=== PATIENT | female | born 1980 | race Caucasian/White ===

== ENCOUNTER 2016-08-18 09:52 | Emergency (ER) | payer SELFPAY ==
[~2016-08-18] VITALS: Ht 167.6 cm; Wt 73.9 kg
[2016-08-18 12:44] VITALS: BP 134/78
== END 2016-08-18 12:44 | disposition home or self-care (01) ==
LOC: ED 09:52
DX: L03.012 Cellulitis of left finger (principal)
CPT/HCPCS: J2001

== ENCOUNTER 2016-10-29 13:20 | Emergency (ER) | payer MEDICAID ==
[~2016-10-29] VITALS: Ht 167.6 cm; Wt 76.7 kg
[2016-10-29 13:58] VITALS: BP 131/91
== END 2016-10-29 13:58 | disposition home or self-care (01) ==
LOC: ED 13:20
DX: L02.412 Cutaneous abscess of left axilla (principal); R03.0 Elevated blood-pressure reading, without diagnosis of hypertension; Z88.0 Allergy status to penicillin; Z88.2 Allergy status to sulfonamides

== ENCOUNTER 2017-06-29 17:33 | Emergency (ER) | payer OTHER ==
[~2017-06-29] VITALS: Ht 167.6 cm; Wt 74.8 kg
[2017-06-29 17:44] VITALS: Ht 167.6 cm; Wt 74.8 kg
[2017-06-29 19:34] VITALS: BP 126/74
== END 2017-06-29 19:34 | disposition home or self-care (01) ==
LOC: ED 17:33
DX: S93.602A Unspecified sprain of left foot, initial encounter (principal); Z88.2 Allergy status to sulfonamides; Z88.0 Allergy status to penicillin; W19.XXXA Unspecified fall, initial encounter; Y93.89 Activity, other specified; Y92.89 Other specified places as the place of occurrence of the external cause; Y99.8 Other external cause status

== ENCOUNTER 2018-10-06 09:56 | Emergency (ER) | payer OTHER ==
[~2018-10-06] VITALS: Ht 167.6 cm; Wt 81.6 kg
[2018-10-06 10:07] VITALS: BP 108/74; Ht 167.6 cm; Wt 81.6 kg
== END 2018-10-06 12:42 | disposition home or self-care (01) ==
LOC: ED 09:56
DX: S61.250A Open bite of right index finger without damage to nail, initial encounter (principal); Z88.0 Allergy status to penicillin; Z88.2 Allergy status to sulfonamides; W55.01XA Bitten by cat, initial encounter; Y93.89 Activity, other specified; Y92.89 Other specified places as the place of occurrence of the external cause; Y99.8 Other external cause status
CPT/HCPCS: J1885; J3490; Q0092

== ENCOUNTER 2018-10-09 16:33 | Emergency (ER) | payer OTHER ==
[~2018-10-09] VITALS: Ht 167.6 cm; Wt 81.2 kg
[2018-10-09 16:48] VITALS: BP 114/75; Ht 167.6 cm; Wt 81.2 kg
== END 2018-10-09 19:55 | disposition left against medical advice (07) ==
LOC: ED 16:33
DX: Z53.21 Procedure and treatment not carried out due to patient leaving prior to being seen by health care provider (principal)

== ENCOUNTER 2018-10-10 19:44 | Emergency (ER) | payer OTHER ==
[~2018-10-10] VITALS: Ht 167.6 cm; Wt 81.4 kg
[2018-10-10 19:51] VITALS: Ht 167.6 cm; Wt 81.4 kg
[2018-10-10 20:57] LABS: BASOPHIL % 0.3 % (0-2); RED CELL DISTRIBUTION WIDTH 13.4 % (11.5-14.5)
[2018-10-10 20:58] LABS: PLATELET COUNT 474 x10^3mcL (130-400)
[2018-10-10 21:05] LABS: CALCIUM 9.8 mg/dL (8.5-10.1); CARBON DIOXIDE 27.4 mmol/L (21-32); CHLORIDE SERUM 102 mmol/L (98-107); CREATININE SERUM 0.6 mg/dL (0.6-1.0); GFR1 > 60 mL/min; GLUCOSE SERUM 107 mg/dL (74-106); POTASSIUM SERUM 3.9 mmol/L (3.5-5.1); SODIUM SERUM 140 mmol/L (136-145)
[2018-10-10 21:10] LABS: ALBUMIN 3.6 g/dL (3.4-5.0); ALKALINE PHOSPHATASE 103 U/L (46-116); ALT/SGPT 24 U/L (14-59); AST/SGOT 14 U/L (15-37); BILIRUBIN TOTAL 0.2 mg/dL (0.20-1.00); TOTAL PROTEIN, SERUM 7.9 g/dL (6.4-8.2)
[2018-10-10 22:20] VITALS: BP 125/87
== END 2018-10-10 22:20 | disposition left against medical advice (07) ==
LOC: ED 19:44
PROVIDERS: Emergency Medicine
DX: L03.011 Cellulitis of right finger (principal); S61.254D Open bite of right ring finger without damage to nail, subsequent encounter; Z88.0 Allergy status to penicillin; Z88.2 Allergy status to sulfonamides; W55.01XD Bitten by cat, subsequent encounter
CPT/HCPCS: J3490; J7030; Q0092

== ENCOUNTER 2019-02-03 21:45 | Emergency (ER) | payer OTHER ==
[~2019-02-03] VITALS: Ht 167.6 cm; Wt 78.5 kg
[2019-02-03 21:55] VITALS: Ht 167.6 cm; Wt 78.5 kg
[2019-02-03 22:48] LABS: BASOPHIL % 1.5 % (0-2); PLATELET COUNT 373 x10^3mcL (130-400); RED CELL DISTRIBUTION WIDTH 13.8 % (11.5-14.5)
[2019-02-03 23:19] LABS: CALCIUM 8.4 mg/dL (8.5-10.1); CARBON DIOXIDE 20.4 mmol/L (21-32); CHLORIDE SERUM 106 mmol/L (98-107); CREATININE SERUM 0.7 mg/dL (0.6-1.0); GFR1 > 60 mL/min; GLUCOSE SERUM 108 mg/dL (74-106); POTASSIUM SERUM 3.8 mmol/L (3.5-5.1); SODIUM SERUM 139 mmol/L (136-145)
[2019-02-03 23:26] LABS: ALBUMIN 3.7 g/dL (3.4-5.0); ALKALINE PHOSPHATASE 80 U/L (46-116); ALT/SGPT 18 U/L (14-59); AST/SGOT 16 U/L (15-37); BILIRUBIN TOTAL 0.3 mg/dL (0.20-1.00); LIPASE 72 IU/L (73-393); TOTAL PROTEIN, SERUM 7.5 g/dL (6.4-8.2)
[2019-02-04 03:34] VITALS: BP 98/63
== END 2019-02-04 03:34 | disposition home or self-care (01) ==
LOC: ED 21:45
PROVIDERS: Emergency Medicine
DX: N83.209 Unspecified ovarian cyst, unspecified side (principal); N39.0 Urinary tract infection, site not specified; F17.210 Nicotine dependence, cigarettes, uncomplicated; Z88.0 Allergy status to penicillin; Z88.2 Allergy status to sulfonamides
CPT/HCPCS: J1885; J2270; J2405; J7030; Q0092

== ENCOUNTER 2019-05-14 20:22 | Emergency (ER) | payer OTHER ==
[~2019-05-14] VITALS: Ht 170.2 cm; Wt 80.3 kg
[2019-05-14 20:35] VITALS: Ht 170.2 cm; Wt 80.3 kg
[2019-05-15 00:25] VITALS: BP 110/65
== END 2019-05-15 00:22 | disposition home or self-care (01) ==
LOC: ED 20:22
DX: S52.501A Unspecified fracture of the lower end of right radius, initial encounter for closed fracture (principal); Z88.0 Allergy status to penicillin; Z88.2 Allergy status to sulfonamides; W22.8XXA Striking against or struck by other objects, initial encounter; Y93.89 Activity, other specified; Y92.89 Other specified places as the place of occurrence of the external cause; Y99.8 Other external cause status
CPT/HCPCS: J3010; Q0092

== ENCOUNTER 2020-03-11 02:07 | Emergency (ER) | payer OTHER ==
[~2020-03-11] VITALS: Ht 167.6 cm; Wt 79.4 kg
[2020-03-11 02:11] VITALS: Ht 167.6 cm; Wt 79.4 kg
[2020-03-11 03:00] VITALS: BP 119/75
== END 2020-03-11 03:00 | disposition home or self-care (01) ==
LOC: ED 02:07
DX: S61.512A Laceration without foreign body of left wrist, initial encounter (principal); Z88.0 Allergy status to penicillin; Z88.2 Allergy status to sulfonamides; F17.200 Nicotine dependence, unspecified, uncomplicated; W45.8XXA Other foreign body or object entering through skin, initial encounter; Y93.89 Activity, other specified; Y92.89 Other specified places as the place of occurrence of the external cause; Y99.8 Other external cause status
CPT/HCPCS: 90715; 99406; J2001

== ENCOUNTER 2020-03-15 02:21 | Emergency (ER) | payer OTHER ==
[~2020-03-15] VITALS: Ht 167.6 cm; Wt 80.4 kg
[2020-03-15 02:32] VITALS: Ht 167.6 cm; Wt 80.4 kg
[2020-03-15 04:18] VITALS: BP 106/70
== END 2020-03-15 04:18 | disposition home or self-care (01) ==
LOC: ED 02:21
DX: T54.91XA Toxic effect of unspecified corrosive substance, accidental (unintentional), initial encounter (principal); L29.9 Pruritus, unspecified; J02.9 Acute pharyngitis, unspecified; F17.210 Nicotine dependence, cigarettes, uncomplicated; Z88.0 Allergy status to penicillin; Z88.2 Allergy status to sulfonamides; Y92.89 Other specified places as the place of occurrence of the external cause
CPT/HCPCS: J1885; Q0162